=== PATIENT | female | born 1985 | race Caucasian/White ===

== ENCOUNTER 2016-09-23 18:52 | Emergency (ER) | payer OTHER ==
[~2016-09-23] VITALS: Ht 157.5 cm; Wt 66.0 kg
[2016-09-23 19:42] LABS: HEMATOCRIT 31.9 % (36.0-46.0); MCHC 34.5 G/DL (30.0-36.0); MCV 84.2 FL (83-99); MEAN PLAT.VOLUME 9.4 uM^3 (9.5-12.4); PLATELET COUNT 305 K/uL (156-360); RBC DIS.WIDTH-SD 39.8 % (39-53); RED BLOOD COUNT 3.79 M/uL (3.80-5.20); WHITE BLOOD COUNT 20.5 K/uL (4.1-10.2)
[2016-09-23 19:48] LABS: CHLORIDE 108 mEq/L (99-109); POTASSIUM 3.5 mEq/L (3.7-5.4); SODIUM 139 mEq/L (136-147)
[2016-09-23 19:51] LABS: GLUCOSE 91 mg/dL (70-99)
[2016-09-23 19:52] LABS: ANION GAP 7 MEQ/L (2-14)
[2016-09-23 19:53] LABS: TOTAL BILIRUBIN 0.3 mg/dL (0.0-1.0)
[2016-09-23 19:54] LABS: ALKALINE PHOSPHATASE 54 IU/L (3-129)
[2016-09-23 19:55] LABS: GFR ESTIMATE (CALCULATED) > 59 mL/min/; UREA NITROGEN (BUN) 5 mg/dL (9-23)
[2016-09-23 19:58] LABS: LIPASE 13 U/L (1.0-51.0)
[2016-09-23 20:03] LABS: QUANTITATIVE HCG 844.5 MIU/ML
[2016-09-23 21:01] LABS: ADD MIUA? YES; BILIRUBIN NEGATIVE; BLOOD LARGE; COLOR YELLOW ((YELLOW)); GLUCOSE (STRIP) 50; KETONES NEGATIVE; LEUKOCYTES MODERATE; NITRITE NEGATIVE; PROTEIN (STRIP) 30; SPECIFIC GRAVITY 1.006 (1.000-1.030); UROBILINOGEN 0.2 MG/DL (0.2-1.0)
[2016-09-23 21:05] LABS: BACTERIA RARE /HPF; EPITHELIAL CELLS RARE /HPF; MUCUS TRACE /LPF; RED BLOOD CELLS 0-5 /HPF (0-5); UCUL ADDED? NO; WHITE BLOOD CELLS 20-30 /HPF (0-5)
[2016-09-23] MEDS ORDERED: PERCOCET 5/31 TABLET PO (23:18)
[2016-09-23] MEDS ORDERED: AUGMENTIN875 MG PO (23:18)
[2016-09-23] MEDS ORDERED: ZOFRAN4 MG PO (23:18)
[2016-09-24 00:08] VITALS: BP 105/62
== END 2016-09-24 00:37 | disposition home or self-care (01) ==
LOC: EME 18:52
DX: O03.5 Genital tract and pelvic infection following complete or unspecified spontaneous abortion (principal); N71.0 Acute inflammatory disease of uterus; R51 Headache; D64.9 Anemia, unspecified; F17.200 Nicotine dependence, unspecified, uncomplicated
CPT/HCPCS: 71010; 76856; 80053; 81003; 83605; 83690; 84702; 85027; 87040; 99281; 99285; J0696; J1885; J2270; J2405; J7030; J7050